=== PATIENT | female | born 1990 | race Caucasian/White ===

== ENCOUNTER 2021-11-19 00:29 | Day surgery (SDC) | payer OTHER, SELFPAY ==
[2021-10-29 13:12] VITALS: BMI 34.8
[2021-11-19 11:51] VITALS: BP 110/85; PULSE 84; RESP 18; TEMP 36.5; O2SAT 99; BMI 35.3
[2021-11-19] MEDS: LACTATED RINGERS 1,000 ML 150 ML IV CONT (12:03)
--- NOTE | 2021-11-19 12:20 | PM.HPGS ---
History of Present Illness History of Present Illness Consent: Risks, benefits, and alternatives have been discussed and questions answered. Patient agrees to proceed with procedure. Chief complaint: epigastric pain Narrative: Cindy Yeboah is a 30 year old female Who has been troubled by a couple of different issues.? She has pain that she developed in the epigastric and left upper quadrant area.? This happens every few months.? At times it feels like a hunger sensation but is not relieved by eating or by taking an antacid.? She had this last month and it lasted for a week.? It was excruciating.? When she has the pain she cannot do much of anything.? Is not altered by change in position.? She does not vomit.? She has been nauseated but not just with these episodes.? She in fact has nausea every day and this has been going on since high school. ? She states that she is nauseated as soon as she gets up no matter what time of day she awakens. Review of Systems Review of Systems: All systems reviewed & are unremarkable except as noted in HPI and below PMFSH Family History Family History Father Heart disease Hypertension Cerebrovascular accident AA (alcohol abuse) Mother Depression Heart disease Asthma Social History Social History Smoking status: Never smoker Second hand tobacco smoke exposure: No Alcohol intake: never Substance use: never Substance use type: marijuana Living arrangements: with family Gender identity (if verbalized by the patient): Female Spiritual care concerns: No Meds Home Medications and Allergies Home Medications Medication Instructions Recorded Confirmed Type djrhnul-frpdqhkuancio-qbaudfkg 250 1 tablet PO Q4-6H PRN Headache 10/16/21 11/19/21 History mg-250 mg-65 mg tablet (Excedrin Migraine) Allergies Allergy/AdvReac Type Severity Reaction Status Date / Time Pwkljkz-YRY-NbS Reductase AdvReac Mild mental Verified 11/19/21 11:50 Inhibitor changes Vital Signs Vital Signs - 24 hr 11/19/21 11:51 Temperature 36.5 C Pulse Rate 84 Respiratory Rate 18 Blood Pressure 110/85 Pulse Oximetry 99 Oxygen Delivery Room Air Exam Const: General: alert Orientation/consciousness: patient oriented x3 Resp: Auscultation: clear to auscultation bilaterally Cardio: Rhythm: regular rhythm GI: GI Palp: Yes Soft to palpation and No Tenderness to palpation present (GI) Neuro: General: patient oriented x3 Assessment and Plan Assessment and plan (1) Nausea and vomiting: Code(s): R11.2 - Nausea with vomiting, unspecified Status: Acute Assessment and Plan: EGD with possible biopsy or dilatation or cautery.
--- NOTE | 2021-11-19 12:26 | WPDANESEPPF ---
Anes - Initial Pre Proc Eval Procedure: Operation Date: 11/19/21 13:00 Proposed Procedures p Esophagogastroduodenoscopy - Keegan Joyce MD Date/Time: 11/19/21 12:26 Surgeon: Keegan Joyce MD Pre Op Diagnosis: epigastric pain Patient Data Age: 30 Gender: F Height: 1.68 m Weight: 99.3 kg Last Vital Signs Temp 36.5 C 11/19/21 11:51 Pulse 84 11/19/21 11:51 Resp 18 11/19/21 11:51 BP 110/85 11/19/21 11:51 Pulse Ox 99 11/19/21 11:51 O2 Del Method Room Air 11/19/21 11:51 Allergies Allergy/AdvReac Type Severity Reaction Status Date / Time Aawcxap-TIP-CcB Reductase AdvReac Mild mental Verified 11/19/21 11:50 Inhibitor changes Home Medications Medication Instructions Recorded Confirmed Type lybidqu-tgntrburbdycd-blugpyue 250 1 tablet PO Q4-6H PRN Headache 10/16/21 11/19/21 History mg-250 mg-65 mg tablet (Excedrin Migraine) Patient hx anesthesia problems: none Family hx anesthesia problems: none Results Review: All pre-operative results and documents have been reviewed as part of the pre-operative evaluation. [facility] Family History Family History Father Heart disease Hypertension Cerebrovascular accident AA (alcohol abuse) Mother Depression Heart disease Asthma Social History Social History Smoking status: Never smoker Second hand tobacco smoke exposure: No Alcohol intake: never Substance use: never Substance use type: marijuana Living arrangements: with family Gender identity (if verbalized by the patient): Female Spiritual care concerns: No Anes - Eval Final PreProcedure Day of Procedure 11/19/21 12:26 Patient weight: obese Heart: regular rate and rhythm Lungs: clear to auscultation and normal air movement Airway: Mallampati scale class II Neurological: alert and oriented Last oral intake: >/= 8 hours ASA classification: II Emergent: no Anesthetic plan: proceed Anesthesia type and monitoring: general GIVS Results Review: All pre-operative results and documents have been reviewed as part of the pre-operative evaluation. Informed Consent: The patient's anesthetic plan and its attendant risks and benefits were discussed with the patient/family/POA. Questions were solicited and answers provided to the satisfaction of the patient/family/POA.
[2021-11-19 13:18] VITALS: BP 110/81; PULSE 93; RESP 20; O2SAT 98
[2021-11-19 13:28] VITALS: BP 99/76; PULSE 78; RESP 23; O2SAT 97
[2021-11-19 13:38] VITALS: BP 122/92; PULSE 73; RESP 25; O2SAT 99
== END 2021-11-19 13:50 | disposition home or self-care (01) ==
PROVIDERS: PCP Nurse Practitioner Family; Visit Provider Internal Medicine Gastroenterology
PROC: 0DJ08ZZ Inspection of Upper Intestinal Tract, Via Natural or Artificial Opening Endoscopic (ICD-10-PCS; CPT 43235; principal; 2021-11-19 13:00)
DX: R11.2 Nausea with vomiting, unspecified (principal); K21.9 Gastro-esophageal reflux disease without esophagitis; K29.70 Gastritis, unspecified, without bleeding; F12.90 Cannabis use, unspecified, uncomplicated; Z79.82 Long term (current) use of aspirin; E66.9 Obesity, unspecified; Z68.35 Body mass index [BMI] 35.0-35.9, adult
CPT/HCPCS: 43239; 87081; 88305; J2704; J7120